=== PATIENT | male | born 1950 | race American Indian/Alaskan Native ===

== ENCOUNTER 2021-03-23 08:00 | Outpatient (CLI) | payer OTHER | END 2021-03-23 08:30 | disposition home or self-care (01) | LOC: PPH VACUNA 08:00 | PROVIDERS: ATTEND Emergency Medicine Pediatric Emergency Medicine | DX: Z23 Encounter for immunization (principal) ==

== ENCOUNTER 2022-03-30 10:57 | Outpatient (CLI) | payer OTHER | END 2022-03-30 11:07 | disposition home or self-care (01) | LOC: PPH VACUNA 10:57 | PROVIDERS: ATTEND Emergency Medicine Pediatric Emergency Medicine | DX: Z23 Encounter for immunization (principal) ==